=== PATIENT | female | born 1970 | race African-American/Black ===

== ENCOUNTER 2017-12-12 12:51 | Emergency (ER) | payer OTHER ==
[~2017-12-12] VITALS: Ht 175.3 cm; Wt 56.7 kg
[2017-12-12 13:02] VITALS: BP 182/94
--- NOTE | 2017-12-12 14:03 | NUR ---
Patient discharged to home in stable condition. Written and verbal after care instructions given. Patient verbalizes understanding of instruction.
== END 2017-12-12 14:08 | disposition home or self-care (01) ==
LOC: ER 12:54
DX: J45.909 Unspecified asthma, uncomplicated (principal); I10 Essential (primary) hypertension; Z76.0 Encounter for issue of repeat prescription; G89.29 Other chronic pain; Z88.0 Allergy status to penicillin; F17.200 Nicotine dependence, unspecified, uncomplicated; G62.9 Polyneuropathy, unspecified
CPT/HCPCS: 99283; A4606; Z7610

== ENCOUNTER 2018-01-15 11:42 | Emergency (ER) | payer OTHER ==
[~2018-01-15] VITALS: Ht 177.8 cm; Wt 68.0 kg
[2018-01-15 12:07] VITALS: BP 134/74
== END 2018-01-15 14:11 | disposition home or self-care (01) ==
LOC: ER 11:44
DX: Z32.02 Encounter for pregnancy test, result negative (principal); I10 Essential (primary) hypertension; J45.909 Unspecified asthma, uncomplicated; G89.29 Other chronic pain; G62.9 Polyneuropathy, unspecified; F17.200 Nicotine dependence, unspecified, uncomplicated; Z88.0 Allergy status to penicillin
CPT/HCPCS: 84703; 99283; A4606; Z7610

== ENCOUNTER 2018-04-04 16:00 | Emergency (ER) | payer MEDICAID, OTHER ==
[~2018-04-04] VITALS: Ht 175.3 cm; Wt 67.1 kg
--- NOTE | 2018-04-04 16:22 | NUR ---
PT BIB SELF C/O BACK PAIN SINCE THANKSGIVING PAIN SCALE 9/10, PT IS AOX4, NOT IN RESPIRATORY DISTRESS, V/S STABLE, KEPT RESTED AND COMFORTABLE, AWAITING ER MD FOR EVAL.
--- NOTE | 2018-04-04 16:27 | NUR ---
URINE COLLECTED AND SENT TO THE LAB. AWAITING RESULT.
[2018-04-04] MEDS ORDERED: KETOROLAC TROMETHAMINE 15 MG/ML VIAL ONE (17:22)
[2018-04-04] MEDS ORDERED: ONDANSETRON HCL/PF 4 MG/2 ML VIAL ONE (17:22)
[2018-04-04] MEDS ORDERED: predniSONE 20 MG TABLET ONE (17:22)
[2018-04-04] MEDS ORDERED: KETOROLAC TROMETHAMINE INJ 30 MG/ML VIAL IV ONE (17:30)
[2018-04-04] MEDS ORDERED: predniSONE 20 MG TABLET PO ONE (17:30)
[2018-04-04] MEDS ORDERED: ONDANSETRON HCL/PF 4 MG/2 ML VIAL IVP ONE (17:30)
[2018-04-04] MEDS ORDERED: ALBUTEROL FS 2.5 MG/3 ML VIAL.NEB CONTNEB ONE (17:30)
[2018-04-04] MEDS ORDERED: ALBUTEROL FS 2.5 MG/3 ML VIAL.NEB ONE (17:48)
--- NOTE | 2018-04-04 17:53 | NUR ---
RT AT BEDSIDE FOR NEBULIZATION.
--- NOTE | 2018-04-04 19:17 | NUR ---
REC'D ENDORSEMENT FROM ERNIE SEPULVEDA FOR [facility]
--- NOTE | 2018-04-04 19:20 | NUR ---
IV removed. Catheter intact and site benign. Pressure and 4x4 applied to site. No bleeding noted. Patient discharged to home in stable condition. Written and verbal after care instructions given. Patient verbalizes understanding of instruction.
[2018-04-04 19:22] VITALS: BP 126/74
== END 2018-04-04 19:23 | disposition home or self-care (01) ==
LOC: ER 16:02
DX: J06.9 Acute upper respiratory infection, unspecified (principal); J45.909 Unspecified asthma, uncomplicated; M54.5 Low back pain; I10 Essential (primary) hypertension; G62.9 Polyneuropathy, unspecified; F12.90 Cannabis use, unspecified, uncomplicated; G89.29 Other chronic pain; Z88.0 Allergy status to penicillin; Z60.2 Problems related to living alone
CPT/HCPCS: 71045; 94644; 96374; 96375; 99285; A4606; J1885; J2405; J7512; Z7610